=== PATIENT | male | born 1985 | race Two or more races ===

== ENCOUNTER 2024-07-20 17:02 | Emergency (ER) | payer OTHER ==
[~2024-07-20] VITALS: Ht 162.6 cm; Wt 74.8 kg
== END 2024-07-20 18:36 | disposition home or self-care (01) ==
LOC: ER 17:04
DX: B76.9 Hookworm disease, unspecified (principal)

== ENCOUNTER 2024-07-23 17:59 | Emergency (ER) | payer OTHER ==
[~2024-07-23] VITALS: Ht 162.6 cm; Wt 70.3 kg
[2024-07-23 19:09] VITALS: BP 80/51; O2SAT 97
[2024-07-23] MEDS ORDERED: DIPHENHYDRAMINE HCL 50 MG/ML VIAL 1ML IV ONE (20:15)
[2024-07-23] MEDS ORDERED: FAMOtidine 10 MG/ML (4ML VIAL) IV ONE (20:15)
[2024-07-23] MEDS ORDERED: KETOROLAC TROMETHAMINE 30 MG VIAL IU ONE (20:15)
[2024-07-23] MEDS ORDERED: METHYLPREDNISOLONE SOD SUCC 40 MG VIAL IV ONE (20:15)
[2024-07-23] MEDS ORDERED: CEFTRIAXONE SODIUM 1,000 MG VIAL IV ONE (20:15)
[2024-07-23 20:55] LABS: HEMATOCRIT 45.4 % (39.0-48.0); HEMOGLOBIN 15.8 g/dL (13-16.00); MEAN CELL VOLUME 90.5 fL (80.0-100.00); MEAN CORPUSCULAR HEMOGLOBIN 31.4 pg (27.00-32.0); MEAN CORPUSCULAR HGB CONC 34.8 g/dl (32.0-36.0); PLATELET COUNT 245 K/uL (150-450); RED BLOOD COUNT 5.02 M/uL (4.00-6.00); RED CELL DISTRIBUTION WIDTH 13.4 % (11.5-14.5)
[2024-07-23 21:28] LABS: ALBUMIN 3.6 gm/dL (3.4-5.0); BILIRUBIN TOTAL 1.18 mg/dL (0.3-1.2); CALCIUM 8.4 mg/dL (8.5-10.1); CREATININE SERUM 1.21 mg/dL (0.70-1.30); GFR 67.48; POTASSIUM 3.59 mEq/L (3.5-5.1); TOTAL PROTEIN 7.6 gm/dL (6.4-8.2)
[2024-07-23] MEDS ORDERED: DOLOGESIC 500-1 EACH PO (22:28)
[2024-07-23] MEDS ORDERED: CEPHALEXIN750 MG PO (22:28)
[2024-07-23] MEDS ORDERED: MEDROLPACK PO (22:28)
[2024-07-23] MEDS ORDERED: PEPCID AC20 MG PO (22:28)
== END 2024-07-23 22:35 | disposition home or self-care (01) ==
LOC: ER 18:01
PROVIDERS: General Practice
DX: L25.9 Unspecified contact dermatitis, unspecified cause (principal); B76.9 Hookworm disease, unspecified